=== PATIENT | female | born 1945 | race Caucasian/White ===

== ENCOUNTER 2021-02-15 15:15 | Emergency (ER) | payer MEDICARE ==
--- NOTE | 2021-02-15 17:19 | CRLCT ---
For Patients: As a result of the Century Cures Act, medical imaging exams and procedure reports are released immediately into your electronic medical record. You may view this report before your referring provider. If you have questions, please contact your health care provider. HISTORY: Abdominal pain. Bloody stools. TECHNIQUE: CT abdomen and pelvis without contrast. COMPARISON: None. FINDINGS: Abdomen: Liver, pancreas, spleen, adrenal glands, and kidneys are unremarkable. Mild colonic diverticulosis. No dilated bowel. No free fluid. No lymphadenopathy. Abdominal aorta is not dilated. Pelvis: No lymphadenopathy. Musculoskeletal: Degenerative changes of the spine. Chronic deformity of the superior endplate of T12 vertebral body. Lower chest: Mild atelectasis in the right lower lobe. IMPRESSION: No acute abnormality in the abdomen or pelvis. Dictated by Justus Herzog MD @ 02/15/2021 5:17:09 PM Please note that all CT scans at this facility use dose modulation, iterative reconstruction, and/or weight-based dosing when appropriate to reduce radiation dose to as low as reasonably achievable. Dictated by: Justus Herzog MD @ 02/15/2021 17:17:14 (Electronically Signed)
--- NOTE | 2021-02-15 17:51 | EDM.PDOC ---
ED HPI GENERAL MEDICAL PROBLEM - General Chief Complaint: Gastrointestinal Problem Stated Complaint: STOMACHE ACHE, BLOODY DIARRHEA Time Seen by Provider: 02/15/21 16:20 Source of Information: Reports: Patient, RN History Limitations: Reports: No Limitations - History of Present Illness INITIAL COMMENTS - FREE TEXT/NARRATIVE: Over the last couple of weeks has had blood in her stool. This is bright red and is with diarrhea. She has not established with a primary care provider since she has moved to this area. The blood is causing her great concern and wanted it checked out. Onset: Gradual Onset Date: 02/08/21 Duration: Waxing/Waning Location: Reports: Abdomen (Pain in the abdomen with blood in her diarrhea stools) Quality: Reports: Ache, Pressure Improves with: Reports: None Worsens with: Reports: None Abdominal Pain Score (Numeric/FACES): 4 - Related Data Allergies Allergy/AdvReac Type Severity Reaction Status Date / Time codeine Allergy Other Verified 02/15/21 15:37 Sulfa (Sulfonamide Allergy Cannot Verified 02/15/21 15:37 Antibiotics) Remember Home Meds: Home Meds Cyanocobalamin/Folic Acid [Vitamin U89-Oiatx Acid] 1 each PO DAILY 02/15/21 [History] Magnesium Oxide [Magnesium] 400 mg PO DAILY 02/15/21 [History] Omeprazole 40 mg PO DAILY 02/15/21 [History] Past Medical History HEENT History: Reports: Cataract Cardiovascular History: Reports: None Respiratory History: Reports: None Gastrointestinal History: Reports: GERD Genitourinary History: Reports: None [employer] History: Reports: Musculoskeletal History: Reports: Fracture, Osteoporosis Neurological History: Reports: None Psychiatric History: Reports: None Endocrine/Metabolic History: Reports: None Hematologic History: Reports: None Immunologic History: Reports: None Oncologic (Cancer) History: Reports: None Dermatologic History: Reports: None - Infectious Disease History Infectious Disease History: Reports: Chicken Pox, Measles - Past Surgical History HEENT Surgical History: Reports: None GI Surgical History: Reports: None Musculoskeletal Surgical History: Reports: Other (See Below) Other Musculoskeletal Surgeries/Procedures:: wrist Social & Family History - Tobacco Use Tobacco Use Status *Q: Never Tobacco User - Caffeine Use Caffeine Use: Reports: Coffee Caffeine Use Comment: occ - Recreational Drug Use Recreational Drug Use: No ED ROS GENERAL - Review of Systems Review Of Systems: See Below Constitutional: Reports: No Symptoms GI/Abdominal: Reports: Abdominal Pain, Bloody Stool, Diarrhea. Denies: Difficulty Swallowing, Distension, Flatus : Reports: Flank Pain Skin: Reports: No Symptoms Neurological: Reports: No Symptoms Psychiatric: Reports: No Symptoms ED EXAM, GI/ABD - Physical Exam Exam: See Below Exam Limited By: No Limitations General Appearance: Alert, WD/WN, Moderate Distress Respiratory/Chest: No Respiratory Distress, Lungs Clear, Normal Breath Sounds, No Accessory Muscle Use Cardiovascular: Normal Peripheral Pulses, Regular Rate, Rhythm, No Edema GI/Abdominal Exam: Normal Bowel Sounds, Soft, No Organomegaly, No Distention, No Abnormal Bruit, No Mass, Tender. No: Mass, Hepatomegaly, Splenomegaly Back Exam: Normal Inspection, Full Range of Motion. No: CVA Tenderness (R), CVA Tenderness (L) Extremities: Normal Inspection, Normal Range of Motion, Non-Tender, No Pedal Edema, Normal Capillary Refill Neurological: Alert, Oriented, CN II-XII Intact, Normal Cognition, Normal Gait Psychiatric: Normal Affect, Normal Mood Skin Exam: Warm, Dry, Normal Color, No Rash Lymphatic: No Adenopathy Course - Vital Signs Last Recorded V/S: Last Vital Signs Temp 36.5 C 02/15/21 15:51 Pulse 105 H 02/15/21 15:51 Resp 16 02/15/21 15:51 BP 177/100 H 02/15/21 15:51 Pulse Ox 99 02/15/21 15:51 - Orders/Labs/Meds Labs: Laboratory Tests 02/15/21 02/15/21 02/15/21 Range/Units 16:43 16:43 16:43 WBC 7.7 (4.5-11.0) K/uL RBC 4.49 (3.30-5.50) M/uL Hgb 13.4 (12.0-15.0) g/dL Hct 40.2 (36.0-48.0) % MCV 90 (80-98) fL MCH 30 (27-31) pg MCHC 33 (32-36) % Plt Count 217 (150-400) K/uL Neut % (Auto) 68.1 H (36-66) % Lymph % (Auto) 22.2 L (24-44) % Webb % (Auto) 8.8 H (2-6) % Eos % (Auto) 0.6 L (2-4) % Baso % (Auto) 0.3 (0-1) % ESR 46 H (0-25) mm/hr PT 10.2 (9.5-12.0) sec INR 0.93 (0.80-1.20) APTT 24.5 L (27.0-36.0) sec C-Reactive Protein 0.50 H (0.0-0.3) mg/dL - Radiology Interpretation Free Text/Narrative:: Patient was abdomen without acute abnormalities however she does have a colonic diverticulosis. This may be a source of bleeding. Unknown until colonoscopy is completed. Patient is to follow-up with primary care provider. She is new to the area and must establish care. - Re-Assessments/Exams Free Text/Narrative Re-Assessment/Exam: 02/15/21 18:[address] findings and lab work with the patient. Patient is in agreement she needs to establish care. Course of care will require a colonoscopy. If she continues to have large amounts bleeding she is to return to ER if she is unable to establish care at the clinic. Patient will try to leave stool sample prior to departure. Departure - Departure Time of Disposition: 18:16 Disposition: Home, Self-Care 01 Condition: Fair Clinical Impression: Diverticulosis of colon, Abdominal pain, Bleeding - Discharge Information *PRESCRIPTION DRUG MONITORING PROGRAM REVIEWED*: Not Applicable *COPY OF PRESCRIPTION DRUG MONITORING REPORT IN PATIENT YULIA: Not Applicable Instructions: Abdominal Pain, Adult, [id number], Diarrhea, Adult, [id number] Referrals: PCP,None [Primary Care Provider] - Forms: ED Department Discharge Additional Instructions: Patient to observe bland diet avoid nuts and seeds in her diet. Patient to avoid corn until she is able to be further worked up for her colonic diverticulosis. If patient continues to have bleeding prior to being able to establish care she is to return to the ER. In the meantime patient is to observe a bland diet and use fiber to bulk her stool. Sepsis Event Note (ED) - Evaluation Sepsis Screening Result: No Definite Risk - Focused Exam Vital Signs: Vital Signs Temp Pulse Resp BP Pulse Ox 02/15/21 15:51 36.5 C 105 H 16 177/100 H 99 02/15/21 15:42 36.5 C 105 H 16 177/100 H 99 - Assessment/Plan Assessment:: Diverticulosis of colon versus GI bleed Plan: Patient to establish care with primary care and be scheduled for a colonoscopy. Patient does have names of local providers and she will make a phone call tomorrow to establish care and be seen. If her bleeding continues prior to being able to establish care she will return to the ER. She will try to leave /bring back stool samples for further evaluation.
== END 2021-02-15 18:23 | disposition home or self-care (01) ==
LOC: JP.ED 15:15
DX: K57.33 Diverticulitis of large intestine without perforation or abscess with bleeding (principal); K21.9 Gastro-esophageal reflux disease without esophagitis; Z88.2 Allergy status to sulfonamides; Z88.5 Allergy status to narcotic agent; Z79.899 Other long term (current) drug therapy
CPT/HCPCS: 36415; 74176; 85025; 85610; 85651; 85730; 86140; 99285-25

== ENCOUNTER 2021-03-16 06:34 | Day surgery (SDC) | payer MEDICARE ==
[2021-03-16] MEDS ORDERED: Sodium Chloride 0.9% 1,000 ML IV SCH (07:00)
[2021-03-16] MEDS ORDERED: Midazolam 1 MG/ML 2 ML SDV ONE (07:18)
[2021-03-16] MEDS ORDERED: Propofol 200 MG/20 ML SDV ONE (07:18)
[2021-03-16] MEDS ORDERED: fentaNYL 100 MCG/2 ML SDV ONE (07:18)
--- NOTE | 2021-03-16 13:55 | OR ---
DATE OF PROCEDURE: 03/16/2021 SURGEON: Erik Rooney MD PROCEDURE: Colonoscopy. FINDINGS: Normal colonoscopy. COMPLICATIONS: None. COORDINATOR OF LIBRARY SERVICES: None. ANESTHESIA: MAC. PREOPERATIVE DIAGNOSIS: Gastrointestinal bleeding. POSTOPERATIVE DIAGNOSIS: Gastrointestinal bleeding. RISKS: Risks, benefits, alternatives, and limitations including, but not limited to infection, bleeding, perforation, false positives and false negatives were explained to the patient and she wished to proceed. PROCEDURE IN DETAIL: The patient was placed in a left lateral decubitus position. Digital rectal exam was performed without abnormality. The patient had no significant external hemorrhoids. Scope was introduced and advanced atraumatically to the ileocecal valve. A photo was taken of the appendiceal orifice. Scope was brought back to the ascending, transverse, descending colon, and retroflexed. No evidence of old or new blood. No masses. No polyps. No diverticulosis. No significant hemorrhoids noted on retroflexion. No evidence of colitis. No etiology for bleeding. Greater than 8 minutes was spent removing the scope. Prep was acceptable, approximately 95% of the luminal surface could be seen. The patient tolerated the procedure well. Erik Rooney MD /[id number]
== END 2021-03-16 09:30 | disposition home or self-care (01) ==
LOC: JP.SDS 06:34
PROVIDERS: ATTEND Surgery
DX: K92.2 Gastrointestinal hemorrhage, unspecified (principal); K21.9 Gastro-esophageal reflux disease without esophagitis
CPT/HCPCS: 45378; J2250; J2704; J3010; J7030

== ENCOUNTER 2021-09-10 05:54 | Day surgery (SDC) | payer MEDICARE ==
[2021-09-10] MEDS: Sodium Chloride 0.9% 10 ML Syringe FLUSH PRN (06:43)
== END 2021-09-10 07:55 | disposition home or self-care (01) ==
LOC: JP.SDS 05:54
PROVIDERS: ATTEND Ophthalmology
DX: H25.12 Age-related nuclear cataract, left eye (principal)

== ENCOUNTER 2021-10-15 06:20 | Day surgery (SDC) | payer MEDICARE ==
[2021-10-15] MEDS: Sodium Chloride 0.9% 10 ML Syringe FLUSH PRN (06:48)
== END 2021-10-15 08:22 | disposition home or self-care (01) ==
LOC: JP.SDS 06:20
PROVIDERS: ATTEND Ophthalmology
DX: H25.11 Age-related nuclear cataract, right eye (principal)
CPT/HCPCS: J3490; V2632